=== PATIENT | female | born 1980 | race Caucasian/White ===

== ENCOUNTER → 2023-10-11 | Outpatient (CLI) | payer OTHER ==
--- NOTE | 2023-10-11 10:03 | MM ---
Reason for Exam: Follow-up at short interval from prior study. Last screening mammogram was performed 9 month(s) ago. Patient History: Menarche at age 13. First Full-Term at age 22. Patient has history of breast feeding. Patient used Hormonal Contraceptives for 21 years. 01/26/2023, MG discontinued stereo core RT on the right side. 2004, Bilateral Implants. Paternal aunt had breast cancer at or over age 50. Maternal grandmother had breast cancer under age 50. Risk Values: Claribel 5 year model risk: 0.6%. NCI Lifetime model risk: 8.8%. Prior Study Comparison: 03/25/2021 Bilateral MG 3D screening mammo w/cad, [facility]. 01/13/2023 Bilateral MG 3D screen mammo imp/cad., [facility]. 01/18/2023 Right MG 3D work up w/cad w/imp RT, [facility]. Tissue Density: Right: The breast tissue is heterogeneously dense. This may lower the sensitivity of mammography. Findings: Analyzed By CAD. Pattern appears stable. Suspicious densities are not identified. Suspicious group of calcifications not identified. No suspicious groups of microcalcifications, spiculated or lobular masses, architectural distortion or other secondary signs of malignancy are mammographically apparent. Overall Assessment: Benign, BI-RAD 2 Management: Screening Mammogram of both breasts in 4 months. A negative mammogram report should not preclude additional follow up of suspicious palpable abnormalities. Patient should continue monthly self breast exam. A clinical breast exam by your physician is recommended on an annual basis and results should be correlated with mammographic findings. Electronically signed and approved by: Jonathan Azul D.O. Radiologis
== END | disposition home or self-care (01) ==
LOC: RADMAMWWP 09:24
PROVIDERS: ATTEND Obstetrics & Gynecology
DX: N62 Hypertrophy of breast (principal); R92.331 Mammographic heterogeneous density, right breast; Z80.3 Family history of malignant neoplasm of breast; Z98.82 Breast implant status
CPT/HCPCS: 77061; 77065

== ENCOUNTER → 2024-10-22 | Outpatient (CLI) | payer OTHER ==
--- NOTE | 2024-10-23 16:25 | MM ---
Reason for Exam: Screening (asymptomatic). Last mammogram was performed 1 year(s) and 9 month(s) ago. Patient History: Menarche at age 13. First Full-Term at age 22. Patient has history of breast feeding. Patient used Hormonal Contraceptives for 21 years. 01/26/2023, MG discontinued stereo core RT on the right side. 2004, Bilateral Implants. Paternal aunt had breast cancer, age 70. Maternal grandmother had breast cancer under age 50. Risk Values: Claribel 5 year model risk: 0.7%. NCI Lifetime model risk: 8.7%. Prior Study Comparison: 01/13/2023 Bilateral MG 3D screen mammo imp/cad., [facility]. 01/18/2023 Right MG 3D work up w/cad w/imp RT, [facility]. 10/11/2023 Right MG 3D diag mammo imp w/cad RT, [facility]. Tissue Density: The breasts are heterogeneously dense, which may obscure small masses. Findings: Analyzed By CAD. Bilateral retropectoral saline implants are redemonstrated. Areas of asymmetric density are unchanged. There is no suspicious group of microcalcifications or new suspicious mass in either breast. Overall Assessment: Benign, BI-RAD 2 Management: Screening Mammogram of both breasts in 1 year. Patient should continue monthly self-breast exams. A clinical breast exam by your physician is recommended on an annual basis. This exam should not preclude additional follow-up of suspicious palpable abnormalities. Note on Claribel scores and lifetime risk: 1. A Claribel score greater than 3% is considered moderate risk. If this is the case, consider specialist referral to assess eligibility for a risk reducing agent. 2. If overall lifetime risk for the development of breast cancer is 20% or higher, the patient may qualify for future screening with alternating mammogram and breast MRI. [facility], , 10/23/2024 4:22 PM. Electronically signed and approved by: Levon Velasco M.D. Radiologist
== END | disposition home or self-care (01) ==
LOC: RADMAMWWP 06:54
PROVIDERS: ATTEND Obstetrics & Gynecology
DX: Z12.31 Encounter for screening mammogram for malignant neoplasm of breast (principal); R92.333 Mammographic heterogeneous density, bilateral breasts; Z80.3 Family history of malignant neoplasm of breast
CPT/HCPCS: 77063; 77067

== ENCOUNTER → 2024-10-22 | Outpatient (CLI) | payer OTHER ==
[2024-10-22 15:46] LABS: Chol/HDL Ratio 2.55 Ratio; Glucose 82 mg/dL (70-110); LDL Cholesterol,Calculated 115.2 mg/dL (0.0-131.0); VLDL Calculation 9.88 mg/dL (5.00-40.00)
[2024-10-22 16:35] LABS: HGB 13.5 g/dL (12.0-15.0); MCH 33.9 pg (27.0-32.0); MCHC 33.8 g/dL (32.0-37.0); MCV 100.5 FL (80.0-97.0); Mean Platelet Volume 10.9 FL (9.5-12.2); NRBC Per 100 WBC 0 X 10*3/uL (0.00-0.01); Platelet Count 278 X 10*3/uL (140-440); RBC 3.98 X 10*6/uL (4.10-5.20); RDW 11.9 % (11.5-14.5); WBC 3.54 X 10*3/uL (4.50-10.00)
== END | disposition home or self-care (01) ==
LOC: LABWHC1 07:21
PROVIDERS: ATTEND Obstetrics & Gynecology
DX: N92.0 Excessive and frequent menstruation with regular cycle (principal); E88.819 Insulin resistance, unspecified
CPT/HCPCS: 36415; 80061; 82306; 82947; 83036; 84443; 85027

== ENCOUNTER 2025-05-09 15:35 | Emergency (ER) | payer OTHER ==
[2025-05-09 16:01] VITALS: BP 149/74; PULSE 84; RESP 20; TEMP 98
--- NOTE | 2025-05-09 16:26 | XR ---
EXAMINATION TYPE: XR wrist complete LT DATE OF EXAM: 05/09/2025 4:13 PM COMPARISON: None CLINICAL INDICATION: Female, 44 years old with history of Injury; , pain TECHNIQUE: XR wrist complete LT; examined in the Frontal, navicular, lateral, and oblique. FINDINGS: No acute osseous pathology, joint dislocation, or joint effusion. No evidence of any soft tissue swelling is seen. IMPRESSION: No acute osseous pathology. [facility], , 05/09/2025 4:24 PM
--- NOTE | 2025-05-09 16:39 | ED ---
Upper Extremity HPI - General Chief Complaint: Extremity Injury, Upper Stated Complaint: Left wrist injury Time Seen by Provider: 05/09/25 15:54 Source: patient, RN notes reviewed Mode of arrival: ambulatory Limitations: no limitations - History of Present Illness Initial Comments: This is a 44-year-old female presenting for left wrist injury (09/05) following a fall at 1515 today. Patient states she tripped over a log, avoiding falling into a bonfire and landing onto her left outstretched hand. Patient denies striking head, loss consciousness, neck pain or other significant injury. Patient states that she is right-handed. MD Complaint: Injury to:: left, wrist Onset/Timin -: minutes(s) Time: 15:15 Other Extremity Injury: Wrist: Left Other Injuries: none Place: outdoors Severity scale (1-10): 10 Improves With: immobilization Worsens With: movement of extremity Context: fall Associated Symptoms: denies other symptoms Treatments Prior to Arrival: cold therapy - Related Data Home Medications Medication Instructions Recorded Confirmed Cetirizine HCl [Zyrtec] 10 mg PO DAILY 01/19/23 01/26/23 Folic Acid 1 mg PO DAILY 01/19/23 01/26/23 Mirabegron [Myrbetriq] 50 mg PO DAILY 01/19/23 01/26/23 Allergies Allergy/AdvReac Type Severity Reaction Status Date / Time Penicillins Allergy Rash/Hives Verified 05/09/25 16:00 Sulfa (Sulfonamide Allergy Rash/Hives Verified 05/09/25 16:00 Antibiotics) acetaminophen [From Vicodin] AdvReac Vomiting Verified 05/09/25 16:00 hydrocodone [From Vicodin] AdvReac Vomiting Verified 05/09/25 16:00 Review of Systems ROS Statement: Those systems with pertinent positive or pertinent negative responses have been documented in the HPI. ROS Other: All systems not noted in ROS Statement are negative. Past Medical History Past Medical History: No Reported History History of Any Multi-Drug Resistant Organisms: None Reported Past Surgical History: Adenoidectomy, Tubal Ligation Additional Past Surgical History / Comment(s): urethra dilated 1989. Bilat breast implants 2004, retropectral. Laparoscopic for endometriosis. Past Anesthesia/Blood Transfusion Reactions: Postoperative Nausea & Vomiting (PONV) Past Psychological History: No Psychological Hx Reported Smoking Status: Never smoker Past Alcohol Use History: Occasional Past Drug Use History: None Reported General Exam Limitations: no limitations General appearance: alert, in no apparent distress Head exam: Present: atraumatic, normocephalic, normal inspection Eye exam: Present: normal appearance, PERRL, EOMI. Absent: scleral icterus, conjunctival injection, periorbital swelling ENT exam: Present: normal exam, mucous membranes moist Neck exam: Present: normal inspection. Absent: tenderness, meningismus, lymphadenopathy Respiratory exam: Present: normal lung sounds bilaterally. Absent: respiratory distress, wheezes, rales, rhonchi, stridor Cardiovascular Exam: Present: regular rate, normal rhythm, normal heart sounds. Absent: systolic murmur, diastolic murmur, rubs, gallop, clicks GI/Abdominal exam: Present: soft, normal bowel sounds. Absent: distended, tenderness, guarding, rebound, rigid Extremities exam: Present: full ROM, tenderness (Positive left wrist TTP without obvious crepitus or deformity. Positive soft protrusion from dorsal aspect of left wrist without open wound, contusion, abrasion), normal capillary refill, ot her (Left hand distal neurovascular motor function intact. Radial pulse +2, capillary refill less than 2 seconds). Absent: pedal edema, joint swelling, calf tenderness Back exam: Present: normal inspection Neurological exam: Present: alert, oriented X3, CN II-XII intact Psychiatric exam: Present: normal affect, normal mood Skin exam: Present: warm, dry, intact, normal color. Absent: rash Course Vital Signs 05/09/25 15:59 Temperature 98 F Pulse Rate 84 Respiratory 20 Rate Blood Pressure 149/74 O2 Sat by Pulse 99 Oximetry Medical Decision Making - Medical Decision Making Was pt. sent in by a medical professional or institution (, PA, MERCHANDISE STOCKER, urgent care, hospital, or long term...) When possible be specific @ -[No] Did you speak to anyone other than the patient for history (EMS, parent, family, police, friend...)? What history was obtained from this source @ -[No] Did you review nursing and triage notes (agree or disagree)? Why? @ -[I reviewed and agree with nursing and triage notes] Were old charts reviewed (outside hosp., previous admission, EMS record, old EKG, old radiological studies, urgent care reports/EKG's, long term records)? Report findings @ -[No old charts were reviewed] Differential Diagnosis (chest pain, altered mental status, abdominal pain women, abdominal pain men, vaginal bleeding, weakness, fever, dyspnea, syncope, headache, dizziness, GI bleed, back pain, seizure, CVA, palpatations, mental health, musculoskeletal)? @ -Differential Musculoskeletal Muscular strain, contusion, ligament sprain, fracture, arthritis, septic arthri tis, bursitis, cellulitis, muscle spasm, nerve compression, DVT, arterial occlusion, herpes zoster, electrolyte abnormality, tumor.... This is not meant to be in all inclusive list EKG interpreted by me (3pts min.). @ -Not done X-rays interpreted by me (1pt min.). @ -[None done] CT interpreted by me (1pt min.). @ -[None done] U/S interpreted by me (1pt. min.). @ -[None done] What testing was considered but not performed or refused? (CT, X-rays, U/S, labs)? Why? @ -[None] What meds were considered but not given or refused? Why? @ -Patient declined p.o. Tylenol/Motrin. Declined IM Toradol and morphine. Declined prescription Motrin sent to pharmacy. Did you discuss the management of the patient with other professionals (professionals i.e. , PA, MERCHANDISE STOCKER, lab, RT, psych nurse, social media job titles, endocrinology nurse, teacher, loan service officer, rn case mgr)? Give summary @ -[No] Was smoking cessation discussed for >3mins.? @ -[No] Was critical care preformed (if so, how long)? @ -[No] Were there social determinants of health that impacted care today? How? (Homelessness, low income, unemployed, alcoholism, drug addiction, transportation, low edu. Level, literacy, decrease access to med. care, group home, rehab)? @ -[No] Was there de-escalation of care discussed even if they declined (Discuss DNR or withdrawal of care, Hospice)? DNR status @ -[No] What co-morbidities impacted this encounter? (DM, HTN, Smoking, COPD, CAD, Cancer, CVA, ARF, Chemo, Hep., AIDS, mental health diagnosis, sleep apnea, morbid obesity)? @ -[None] Was patient admitted / discharged? Hospital course, mention meds given and route, prescriptions, significant lab abnormalities, going to OR and other pertinent info. @ -[hospital course] Undiagnosed new problem with uncertain prognosis? @ -[No] Drug Therapy requiring intensive monitoring for toxicity (Heparin, Nitro, Insulin, Cardizem)? @ -[No] Were any procedures done? @ -Clifford wrap applied to left wrist with patient noting relief of pain to 7/10. Diagnosis/symptom? @ -Wrist sprain Acute, or Chronic, or Acute on Chronic? @ -Acute Uncomplicated (without systemic symptoms) or Complicated (systemic symptoms)? @ -Uncomplicated Side effects of treatment? @ -[No] Exacerbation, Progression, or Severe Exacerbation? @ -[No] Poses a threat to life or bodily function? How? (Chest pain, [place], [place], pneumonia, PE, COPD, DKA, ARF, appy, cholecystitis, CVA, Diverticulitis, Homicidal, Suicidal, threat to staff... and all critical care pts) @ -[No] Disposition Clinical Impression: Left wrist sprain Disposition: HOME SELF-CARE Condition: Fair Instructions (If sedation given, give patient instructions): Wrist Injury (ED) Additional Instructions: Rest, ice, compression, elevation. Alternate Tylenol/Motrin every 4 hours for pain. Follow-up with orthopedics for management of ongoing pain. Is patient prescribed a controlled substance at d/c from ED?: No Referrals: Evelyn Abraham DO [Primary Care Provider] - 1-2 days [facility] [Provider Group] - 1-2 days [facility] [Provider Group] - 1-2 days Time of Disposition: 17:07
== END 2025-05-09 17:45 | disposition home or self-care (01) ==
LOC: EC 15:35
DX: S63.502A Unspecified sprain of left wrist, initial encounter (principal); Z88.0 Allergy status to penicillin; Z88.2 Allergy status to sulfonamides; Z88.5 Allergy status to narcotic agent; Z88.6 Allergy status to analgesic agent; W01.0XXA Fall on same level from slipping, tripping and stumbling without subsequent striking against object, initial encounter
CPT/HCPCS: 99283